=== PATIENT | male | born 1965 | race Caucasian/White ===

== ENCOUNTER 2018-01-20 09:11 | Emergency (ER) | payer MEDICARE, OTHER ==
[~2018-01-20] VITALS: Ht 175.3 cm; Wt 65.2 kg
[2018-01-20] MEDS ORDERED: SODIUM CHLORIDE FLUSH 10ML SYR IVF ONE (11:00)
[2018-01-20] MEDS ORDERED: MORPHINE SULFATE 4 MG/ML, 1ML IVPush PRN (11:00)
[2018-01-20] MEDS ORDERED: METOCLOPRAMIDE 5 MG/ML, 2ML IVPush ONE (11:00)
[2018-01-20 11:14] LABS: MD YES; MEAN CORPUSCULAR HEMOGLOBIN 31.6 pg (27.5-34.5); MEAN PLATELET VOLUME 8.9 fL (7.4-10.4); PLATELET COUNT 176 x10^3/uL (130-400); RED BLOOD COUNT 5.42 x10^6/uL (4.38-5.82); RED CELL DISTRIBUTION WIDTH 12.8 % (9.4-14.8)
[2018-01-20 11:22] LABS: ALANINE AMINOTRANSFERASE 36 U/L (12-78); ALBUMIN 4.1 g/dL (3.4-5.0); ANION GAP 7 mmol/L (5-15); CHLORIDE 106 mmol/L (98-107); CREATININE 1.28 mg/dL (0.7-1.3)
[2018-01-20 11:24] LABS: ALKALINE PHOSPHATASE 125 U/L (45-117); BILIRUBIN,TOTAL 0.6 mg/dL (0.2-1.0); TOTAL PROTEIN 8.4 g/dL (6.4-8.2)
[2018-01-20 11:27] LABS: BAND#(MANUAL) 0.13 x10^3/uL; BANDS%(MANUAL) 3 % (0-7); LYMPHS% (MANUAL) 21 % (22-44); MONOS#(MANUAL) 0.65 x10^3/uL (0.3-2.7); MONOS% (MANUAL) 15 % (2-9); SEG#(MANUAL) 2.62 x10^3/uL (1.8-6.8); SEGS% (MANUAL) 61 % (42-75)
[2018-01-20 11:28] LABS: <PLATELET ESTIMATE> ADEQUATE; <PLT MORPHOLOGY> NORMAL PLT MORPH; <RBC MORPHOLOGY> NORMAL
[2018-01-20] MEDS ORDERED: METOCLOPRAMIDE 5 MG/ML, 2ML ONE (11:48)
[2018-01-20] MEDS ORDERED: MORPHINE SULFATE 4 MG/ML, 1ML ONE (11:48)
[2018-01-20] MEDS ORDERED: DICYCLOMINE 10 MG/ML, 2ML ONE (12:24)
[2018-01-20] MEDS ORDERED: DICYCLOMINE 10 MG/ML, 2ML IM ONE (12:30)
[2018-01-20 12:37] LABS: MICROSCOPIC INDICATED
[2018-01-20 12:57] LABS: CULTURE INDICATED? NO
[2018-01-20 13:44] LABS: CLOSTRIDIUM DIFFICILE ANTIGEN NEGATIVE; CLOSTRIDIUM DIFFICILE TOXIN NEGATIVE (Negative)
[2018-01-20] MEDS ORDERED: LOPERAMIDE 2 MG CAPSULE ONE (13:50)
[2018-01-20] MEDS ORDERED: LOPERAMIDE 2 MG CAPSULE PO ONE (14:00)
[2018-01-20 14:50] VITALS: BP 117/77
== END 2018-01-20 14:52 | disposition home or self-care (01) ==
LOC: ED 11:18
DX: K52.9 Noninfective gastroenteritis and colitis, unspecified (principal)
CPT/HCPCS: 36415; 74022; 80053; 81001; 83690; 85025; 87324; 89055; 93005; 96372; 96374; 96375; 99285; J0500; J2765

== ENCOUNTER 2018-06-22 08:34 | Emergency (ER) | payer OTHER ==
[~2018-06-22] VITALS: Ht 175.3 cm; Wt 71.0 kg
[2018-06-22 09:17] LABS: MICROSCOPIC NOT IND
[2018-06-22 09:19] LABS: CULTURE INDICATED? NO
[2018-06-22] MEDS ORDERED: SODIUM CHLORIDE FLUSH 10ML SYR IVF ONE (09:30)
[2018-06-22] MEDS ORDERED: KETOROLAC 30 MG/1 ML IVPush ONE (09:30)
[2018-06-22 09:32] LABS: BASOPHILS # (AUTO) 0.02 x10^3/uL (0-0.1); BASOPHILS % (AUTO) 0 % (0-1); EOSINOPHILS # (AUTO) 0.07 x10^3/uL (0-0.4); EOSINOPHILS % (AUTO) 1 % (1-7); LYMPHOCYTES # (AUTO) 1.16 x10^3/uL (1-3.4); LYMPHOCYTES % (AUTO) 24 % (22-44); MD NO; MEAN CORPUSCULAR HEMOGLOBIN 32.1 pg (27.5-34.5); MEAN CORPUSCULAR HGB CONC 34.3 g/dL (33.2-36.2); MEAN CORPUSCULAR VOLUME 93.4 fL (81-97); MEAN PLATELET VOLUME 8.9 fL (7.4-10.4); MONOCYTES # (AUTO) 0.52 x10^3/uL (0.2-0.8); MONOCYTES % (AUTO) 11 % (2-9); NEUTROPHILS # (AUTO) 3.02 x10^3/uL (1.8-6.8); NEUTROPHILS % (AUTO) 63 % (42-75); PLATELET COUNT 202 x10^3/uL (130-400); RED BLOOD COUNT 4.59 x10^6/uL (4.38-5.82)
[2018-06-22 09:43] LABS: ALBUMIN 3.7 g/dL (3.4-5.0); ANION GAP 7 mmol/L (5-15); CALCIUM 8.2 mg/dL (8.5-10.1); CHLORIDE 109 mmol/L (98-107); CREATININE 1.14 mg/dL (0.7-1.3)
[2018-06-22] MEDS ORDERED: KETOROLAC 30 MG/1 ML ONE (09:50)
[2018-06-22] MEDS ORDERED: CYCL7.5T25 PO (10:03)
[2018-06-22] MEDS ORDERED: AZITHROMYCIN 600 MG TABLET PO SCH (10:30)
[2018-06-22] MEDS ORDERED: CEFTRIAXONE 1,000 MG IM ONE (10:30)
[2018-06-22] MEDS ORDERED: CEFTRIAXONE 250 MG ONE (10:53)
[2018-06-22] MEDS ORDERED: LIDOCAINE-MPF 2%, 2ML ONE (10:54)
[2018-06-22 11:04] VITALS: BP 124/84
== END 2018-06-22 12:05 | disposition home or self-care (01) ==
LOC: ED 11:59
DX: N41.0 Acute prostatitis (principal)
CPT/HCPCS: 36415; 74176; 80048; 81003; 82040; 82962; 85025; 87491; 87591; 96372; 96374; 99285; J0696; J1885

== ENCOUNTER 2020-05-25 17:36 | Emergency (ER) | payer MEDICARE, OTHER ==
[~2020-05-25] VITALS: Ht 170.2 cm; Wt 71.2 kg
[~2020-05-25 17:36] MED LIST: CYCL7.5T25 PO
--- NOTE | 2020-05-25 17:54 | NUR ---
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
--- NOTE | 2020-05-25 18:00 | NUR ---
MATH AND SCIENCE INSTRUCTOR: URINE COLLECTED AND SENT TO LAB.
[2020-05-25 18:49] LABS: MICROSCOPIC AUTO
[2020-05-25] MEDS ORDERED: CEFTRIAXONE PMX 1GM/50ML 50 ML IV ONE (19:00)
--- NOTE | 2020-05-25 19:00 | NUR ---
LATE ENTRY: PT BACK TO ROOM, STATES HE WAS AT [facility] AND GOT RELEASED TODAY. PT STATES HE CAME HERE AFTER BEING RELEASED DUE TO "NOT FEELING WELL AND JUST FEELING OFF" PT STATES HE HAS PAINFUL URINATION AND FEELS WEAK. PT STATES HE HAD FLANK PAIN ON THE LEFT SIDE LAST NIGHT. PT NAD, VSS. PT RESTING ON GURNEY IN WN. RN ATTEMPTED MED REQ BUT PT IS A POOR HISTORIAN FOR MEDS AND DOSES. PT GIVEN WARM BLANKETS FOR COMFORT AND PLACED ON SPO2/BP MONITORING.
[2020-05-25] MEDS ORDERED: CEFTRIAXONE PMX 1GM/50ML 50 ML ONE (19:09)
[2020-05-25 19:19] LABS: ALANINE AMINOTRANSFERASE 35 U/L (12-78); ALBUMIN 3.5 g/dL (3.4-5.0); ANION GAP 5 mmol/L (5-15); CALCIUM 8.6 mg/dL (8.5-10.1); CHLORIDE 105 mmol/L (98-107); CREATININE 1.32 mg/dL (0.7-1.3)
[2020-05-25 19:21] LABS: ALKALINE PHOSPHATASE 127 U/L (45-117); BILIRUBIN,TOTAL 0.7 mg/dL (0.2-1.0); TOTAL PROTEIN 7.6 g/dL (6.4-8.2)
[2020-05-25] MEDS ORDERED: GABA-827 PO (19:23)
[2020-05-25] MEDS ORDERED: ONDANSETRON 2MG/ML, 2ML ONE (19:26)
[2020-05-25] MEDS ORDERED: ONDANSETRON 2MG/ML, 2ML IVPush ONE (19:30)
--- NOTE | 2020-05-25 19:32 | NUR ---
PT BACK FROM CT VIA [facility], NO CHANGE IN CONDITION. PT C/O NAUSEA AND PT MEDICATED PER MAR FOR NAUSEA. PT NAD, CALL [facility], [facility]. WAITING FOR TEST RESULTS.
[2020-05-25 19:39] LABS: BASOPHILS # (AUTO) 0.07 x10^3/uL (0-0.1); BASOPHILS % (AUTO) 1 % (0-1); EOSINOPHILS # (AUTO) 0.17 x10^3/uL (0-0.4); EOSINOPHILS % (AUTO) 1 % (1-7); LYMPHOCYTES # (AUTO) 1.36 x10^3/uL (1-3.4); LYMPHOCYTES % (AUTO) 9 % (22-44); MD NO; MEAN CORPUSCULAR HGB CONC 33.7 g/dL (33.2-36.2); MEAN CORPUSCULAR VOLUME 94.9 fL (81-97); MEAN PLATELET VOLUME 9.3 fL (7.4-10.4); MONOCYTES # (AUTO) 1.01 x10^3/uL (0.2-0.8); MONOCYTES % (AUTO) 7 % (2-9); NEUTROPHILS # (AUTO) 12.08 x10^3/uL (1.8-6.8); NEUTROPHILS % (AUTO) 82 % (42-75); PLATELET COUNT 242 x10^3/uL (130-400); RED BLOOD COUNT 4.28 x10^6/uL (4.38-5.82); RED CELL DISTRIBUTION WIDTH 13.4 % (9.4-14.8)
--- NOTE | 2020-05-25 20:53 | NUR ---
Patient given discharge instructions and they have confirmed that they understand the instructions. Patient ambulatory with steady gait. NAD, SKIN WARM AND DRY, COLOR APPROPRIATE. ALL ADDITIONAL QUESTIONS ANSWERED APPROPRIATELY. NO BELONGINGS LEFT IN ROOM AFTER DC.
[2020-05-25 21:01] VITALS: BP 128/82
== END 2020-05-25 21:03 | disposition home or self-care (01) ==
LOC: ED 18:06
DX: N30.00 Acute cystitis without hematuria (principal); R30.0 Dysuria; R19.7 Diarrhea, unspecified; R10.30 Lower abdominal pain, unspecified; F17.210 Nicotine dependence, cigarettes, uncomplicated
CPT/HCPCS: 36415; 74176; 80053; 81001; 83690; 85025; 87077; 87086; 87186; 96365; 96375; 99284; 99406; J0696; J2405

== ENCOUNTER → 2020-10-17 | Outpatient (CLI) | payer MEDICARE ==
[~2020-10-17] MED LIST changes: +GABA-827 PO
== END | disposition home or self-care (01) ==
LOC: RAD 13:10
PROVIDERS: ATTEND Family Medicine
DX: M47.813 Spondylosis without myelopathy or radiculopathy, cervicothoracic region (principal)
CPT/HCPCS: 72040

== ENCOUNTER 2021-02-25 17:04 | Emergency (ER) | payer MEDICARE ==
[~2021-02-25] VITALS: Ht 175.3 cm; Wt 71.8 kg
--- NOTE | 2021-02-25 17:41 | NUR ---
PT C/O "TROUBLE EATING" AND PAIN AND NAUSEA WITH DIFFUSE ABD PAIN. PER PT [facility] SENT HIM HERE TO HAVE HIS "GALLBLADDER" WORKED UP. PT POSTIONED TO COMFORT. ATTACHED TO MONITORS. JB. JANES. DR. ORTIZ TO BEDSIDE FOR EVALUATION. PT STATES EATING INCREASES ABDOMINAL PAIN.
--- NOTE | 2021-02-25 17:57 | NUR ---
pt to ct.
[2021-02-25] MEDS ORDERED: TRIAMCINOLONE ACETONIDE 40 MG/ML, 1ML IM ONE (18:00)
--- NOTE | 2021-02-25 18:04 | NUR ---
PT BACK FROM CT. RESTING IN BED. VSS. NADN. MEDICATED PER EMAR. GIRLFIREND AT BEDSIDE WITH THERAPY DOG.
[2021-02-25 18:08] LABS: BASOPHILS % (AUTO) 1 % (0-1); EOSINOPHILS % (AUTO) 2 % (1-7); LYMPHOCYTES % (AUTO) 22 % (22-44); MEAN CORPUSCULAR HEMOGLOBIN 31.9 pg (27.5-34.5); MEAN CORPUSCULAR HGB CONC 33.9 g/dL (33.2-36.2); MEAN PLATELET VOLUME 8.8 fL (7.4-10.4); MONOCYTES % (AUTO) 10 % (2-9); NEUTROPHILS % (AUTO) 66 % (42-75); PLATELET COUNT 224 x10^3/uL (130-400); RED BLOOD COUNT 4.87 x10^6/uL (4.38-5.82); RED CELL DISTRIBUTION WIDTH 13.1 % (9.4-14.8)
[2021-02-25 18:10] LABS: MD NO
[2021-02-25 18:19] LABS: ALANINE AMINOTRANSFERASE 15 U/L (12-78); ALBUMIN 3.9 g/dL (3.4-5.0); ANION GAP 4 mmol/L (5-15); CALCIUM 8.4 mg/dL (8.5-10.1); CHLORIDE 111 mmol/L (98-107); CREATININE 1.71 mg/dL (0.7-1.3)
[2021-02-25 18:22] LABS: ALKALINE PHOSPHATASE 138 U/L (45-117); BILIRUBIN,TOTAL 0.3 mg/dL (0.2-1.0); TOTAL PROTEIN 7.3 g/dL (6.4-8.2)
[2021-02-25 18:49] VITALS: BP 121/77
[2021-02-25] MEDS ORDERED: MAALOX/HYOSCYAMINE/LIDOCAINE 45 ML BTL ONE (18:52)
[2021-02-25] MEDS ORDERED: MAALOX/HYOSCYAMINE/LIDOCAINE 45 ML BTL PO ONE (19:00)
--- NOTE | 2021-02-25 19:30 | NUR ---
Patient/Caregiver given discharge instructions and they have confirmed that they understand the instructions. Patient ambulatory with steady gait.
== END 2021-02-25 19:32 | disposition home or self-care (01) ==
LOC: ED 17:30
DX: K43.9 Ventral hernia without obstruction or gangrene (principal); R10.13 Epigastric pain; Z90.89 Acquired absence of other organs; Z87.891 Personal history of nicotine dependence
CPT/HCPCS: 36415; 74021; 80053; 83690; 85025; 96372; 99284; J3301

== ENCOUNTER 2021-07-02 15:03 | Outpatient (CLI) | payer MEDICARE ==
[2021-07-02] MEDS ORDERED: OMNIPAQUE 350 MG/ML, 100ML BOTTLE ONE (16:17)
== END 2021-07-02 23:59 | disposition home or self-care (01) ==
LOC: RAD 15:03
PROVIDERS: ATTEND Family Medicine
DX: R10.9 Unspecified abdominal pain (principal)
CPT/HCPCS: 74177; Q9967

== ENCOUNTER 2021-07-05 11:15 | Emergency (ER) | payer MEDICARE ==
[~2021-07-05] VITALS: Ht 170.2 cm; Wt 71.0 kg
[2021-07-05 11:25] VITALS: BP 145/82
--- NOTE | 2021-07-05 11:44 | NUR ---
REFRIGERATION ENGINE OPERATOR: URINE COLLECTED AND SENT TO LAB.
[2021-07-05 11:48] LABS: BASOPHILS % (AUTO) 0 % (0-1); EOSINOPHILS % (AUTO) 1 % (1-7); LYMPHOCYTES % (AUTO) 10 % (22-44); MEAN CORPUSCULAR HEMOGLOBIN 32.6 pg (27.5-34.5); MEAN CORPUSCULAR HGB CONC 34.8 g/dL (33.2-36.2); MEAN PLATELET VOLUME 8.7 fL (7.4-10.4); MONOCYTES % (AUTO) 7 % (2-9); NEUTROPHILS % (AUTO) 82 % (42-75); PLATELET COUNT 232 x10^3/uL (130-400); RED BLOOD COUNT 4.62 x10^6/uL (4.38-5.82); RED CELL DISTRIBUTION WIDTH 13.2 % (9.4-14.8)
[2021-07-05 11:55] LABS: MICROSCOPIC NOT IND
[2021-07-05 11:56] LABS: ALANINE AMINOTRANSFERASE 20 U/L (12-78); ALBUMIN 3.9 g/dL (3.4-5.0); ANION GAP 6 mmol/L (5-15); CALCIUM 8.6 mg/dL (8.5-10.1); CHLORIDE 109 mmol/L (98-107)
[2021-07-05 11:58] LABS: ALKALINE PHOSPHATASE 117 U/L (45-117); BILIRUBIN,TOTAL 0.5 mg/dL (0.2-1.0); TOTAL PROTEIN 7.6 g/dL (6.4-8.2)
--- NOTE | 2021-07-05 17:45 | NUR ---
extruder operator vertical note: Pt in lobby, yelling, upset with wait. Service recovery attempted. Attempted to discuss POC with pt. Pt interrupting, continues yelling. Pt refuses to sign AMA form. Pt ambulatory out of ER entrance with steady gait.
== END 2021-07-05 18:17 | disposition left against medical advice (07) ==
LOC: ED 11:15
DX: R10.31 Right lower quadrant pain (principal)
CPT/HCPCS: 36415; 80053; 81003; 83690; 85025; 99283